=== PATIENT | female | born 1985 | race Caucasian/White ===

== ENCOUNTER 2021-05-18 11:59 | Emergency (ER) | payer OTHER, SELFPAY ==
[2021-05-18 12:38] VITALS: BP 129/80; PULSE 90; RESP 16; TEMP 36.3; O2SAT 100
[2021-05-18 14:00] LABS: Add Urine Microscopic? YES; Appearance Urine Clear (Clear); Bacteria Urine Trace /hpf; Bilirubin Urine Negative (Negative); Blood Urine 1+ (Negative); Color Urine Colorless (Yellow); Glucose Urine UA Negative (Negative); Ketones Urine Negative (Negative); Leukocyte Esterase Ur Negative LEU/UL (Negative); Nitrate Urine Negative (Negative); Protein Urine Negative (Negative); RBC Urine 0-2 /hpf (0-2); Squamous Epithelial Cell Urine Occasional /hpf (Few); Urobilinogen Urine Negative mg/dL (<2.0); WBC Urine 0-3 /hpf
--- NOTE | 2021-05-18 14:05 | ED.BACK ---
HPI - Back Pain/Injury General Chief Complaint: Back Pain/Injury Stated Complaint: low back pain Time Seen by Provider: 05/18/21 14:04 Source: patient Mode of arrival: ambulatory Limitations: no limitations History of Present Illness HPI Narrative: Patient complaining of frequent urination, urgency and burning sensation, lower back pain. Start 2 weeks ago. Similar to her previous history of urinary tract infection. Patient denies any fever, chills, nausea, vomiting Related Data Allergies Allergy/AdvReac Type Severity Reaction Status Date / Time codeine Allergy Mild Other Unverified 06/27/19 09:20 Review of Systems Review of Systems: CONSTITUTIONAL: Denies fever, chills, or sweats. EYES: Denies visual changes, redness, or discharge. ENT: Denies rhinorrhea, congestion, sore throat, or otalgia. CARDIOVASCULAR: Denies chest pain, palpitations, or edema. RESPIRATORY: Denies cough or dyspnea. GASTROINTESTINAL: Denies abdominal pain, nausea, vomiting, or diarrhea. GENITOURINARY: Denies dysuria or hematuria. SKIN: Denies rash or itching. MUSCULOSKELETAL: Denies back pain, joint pain, or myalgia. NEUROLOGIC: Denies headache, numbness, or weakness. PSYCHIATRIC: Denies anxiety or depression. PMFSH Social History Social History Gender identity (if verbalized by the patient): Female Exam Narrative: General appearance: Well-developed, well-nourished Skin: Normal color Chest and respiratory: Airway patent, no respiratory distress, no accessory muscle use Heart: Regular rate/rhythm Abdomen: Soft, nontender, no organomegaly, quiet bowel sounds Vascular: Normal peripheral pulses, normal capillary refill. Neurologic: Alert and oriented ?3, Course Course Emergency Course: Table Vital Signs Vital signs: Vital Signs Temperature 36.3 C L 05/18/21 12:38 Pulse Rate 90 05/18/21 12:38 Respiratory Rate 16 05/18/21 12:38 Blood Pressure 129/80 05/18/21 12:38 Pulse Oximetry 100 05/18/21 12:38 Temperature 36.3 C L 05/18/21 12:38 Pulse Rate 90 05/18/21 12:38 Respiratory Rate 16 05/18/21 12:38 Blood Pressure 129/80 05/18/21 12:38 Pulse Oximetry 100 05/18/21 12:38 MDM - Back Pain/Injury MDM Narrative Medical decision making narrative: Urine analysis showed no finding indicate urinary tract. Patient reports regular menstrual cycle over the last 3 months, also denies any vaginal bleeding or discharge, also denying any fever, chills, nausea, vomiting, abdominal pain. Patient does not have an MAILING CLERK, patient is sexually active intermittently. The plan to refer patient to MAILING CLERK for pelvic examination. Lab Data Labs: Lab Results 05/18/21 Range/Units 13:47 Urine Color Pending Urine Appearance Pending Urine pH Pending Ur Specific [place] Pending Urine Protein Pending Urine Glucose (UA) Pending Urine Ketones Pending Ur Blood (Man) Pending Urine Nitrate Pending Urine Bilirubin Pending Urine Urobilinogen Pending Leukocyte Esterase Rfl Pending Critical Care Time Critical Care Time Critical Care Time: No Discharge Plan Discharge Clinical Impression: Dysuria, Irregular menstrual cycle Patient Disposition: Home, Self-Care Condition: Stable Instructions: Antibiotic Form, Dysuria (ED) Additional Instructions: Return if symptoms are worsening , call sahil for appointment, take Tylenol as as needed for aches and pain, continue home medications. Prescriptions: New phenazopyridine [Pyridium] 200 mg tablet 200 mg PO TID PRN (Reason: pain) Qty: 6 RF: 0 No Action amoxicillin 875 mg tablet 875 mg PO TID 1
[2021-05-18 14:06] LABS: Specific Grav Ur 1.002 (1.001-1.035)
== END 2021-05-18 14:58 | disposition home or self-care (01) ==
PROVIDERS: Emergency Medicine; Emergency Provider Emergency Medicine
DX: R30.0 Dysuria (principal); N92.6 Irregular menstruation, unspecified
CPT/HCPCS: 81001; 99283

== ENCOUNTER 2023-05-10 10:51 | Outpatient (CLI) | payer OTHER, SELFPAY ==
--- NOTE | ~2023-05-10 | US_ITS ---
EXAMINATION: US thyroid DATE: 05/10/2023 11:24 INDICATION: Goiter. TECHNIQUE: Multiple ultrasound images of the thyroid were obtained. COMPARISON: None. FINDINGS: The right thyroid lobe measures 4.2 x 1.6 x 1.7 cm. The left thyroid lobe measures 3.7 x 1.4 x 1.4 c m. There is normal echotexture and echogenicity throughout the thyroid gland. No discrete nodules id entified. Normal vascular flow is present. IMPRESSION: 1. Normal thyroid. Reviewed, dictated and finalized at location E. AGING CLERK IMPRESSION: 1. Normal thyroid.
== END 2023-05-10 10:52 | disposition home or self-care (01) ==
PROVIDERS: PCP Nurse Practitioner Family; Visit Provider Nurse Practitioner Family
DX: E04.9 Nontoxic goiter, unspecified (principal)
CPT/HCPCS: 76536

== ENCOUNTER 2023-06-13 11:16 | Emergency (ER) | payer OTHER, SELFPAY ==
[2023-06-13 11:27] VITALS: BP 114/77; PULSE 100; RESP 16; TEMP 36.8; O2SAT 100
--- NOTE | 2023-06-13 11:38 | ED.URI ---
HPI - URI/Sore Throat General Chief Complaint: Upper Respiratory Infection Stated Complaint: Sore Throat Time Seen by Provider: 06/13/23 11:45 Source: patient and RN notes reviewed Mode of arrival: ambulatory Limitations: no limitations History of Present Illness HPI Narrative: 38-year-old female presents with concern for 3 day history of sore throat, headache, ear pain. 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 MD elicited complaint: sore throat Related Data Home Medications Medication Instructions Recorded Confirmed losartan 50 mg tablet 50 mg PO DAILY 06/13/23 06/13/23 Allergies Allergy/AdvReac Type Severity Reaction Status Date / Time codeine Allergy Mild Other Verified 06/13/23 11:27 Review of Systems Review of Systems: CONSTITUTIONAL: Denies malaise, chills, sweats, or fever. EYES: Denies visual changes, redness, or discharge. ENT: Reports rhinorrhea, congestion, otalgia and sore throat. CARDIOVASCULAR: Denies chest pain, palpitations, or edema. RESPIRATORY: Denies cough. Denies dyspnea. GASTROINTESTINAL: Denies abdominal pain, nausea, vomiting, diarrhea SKIN: Denies rash or itching. MUSCULOSKELETAL: Reports myalgia. NEUROLOGIC: Reports headache. All systems reviewed & are unremarkable except as noted in HPI and below PMFSH Social History Social History Gender identity (if verbalized by the patient): Female Comments At time of signature, agree with nursing past medical, surgical, social and family history. There is no relevant family history pertinent to the presenting complaint Exam Narrative: GENERAL: Well-appearing, well-nourished, and in no acute distress. HEAD: Normocephalic EYES: PERRLA, conjunctivae clear ENT: Nares clear, turbinates edematous and erythematous, clear discharge. Mucous membranes moist. TM pearly thompson with dull light reflex bilaterally; no tragal tenderness. Oropharynx erythematous without lesions. Tonsils not enlarged and without exudate, no drooling, no hoarseness, no trismus, uvula midline. NECK: Supple. No lymphadenopathy CHEST: Clear to auscultation, breath sounds equal. No wheezing, rhonchi, rales, or stridor. No respiratory distress, speaks in full sentences. HEART: Regular rate and rhythm. No murmur heard. SKIN: Warm, dry, no rash. NEURO: Alert and oriented x3. PSYCH: Normal mood and affect Course Course Emergency Course: Patient is aware of diagnosis, understands and agrees to treatment plan. Anticipatory guidance given. Patient agrees to follow-up as directed and is aware of reasons to seek care at the emergency department. Portions of this record may have been created with voice recognition software Level of Care: Express Care Visit Vital Signs Vital signs: Vital Signs Temperature 98.3 F 06/13/23 11:27 Pulse Rate 100 06/13/23 11:27 Respiratory Rate 16 06/13/23 11:27 Blood Pressure 114/77 06/13/23 11:27 Pulse Oximetry 100 06/13/23 11:27 Oxygen Delivery Room Air 06/13/23 11:27 Temperature 98.3 F 06/13/23 11:27 Pulse Rate 100 06/13/23 11:27 Respiratory Rate 16 06/13/23 11:27 Blood Pressure 114/77 06/13/23 11:27 Pulse Oximetry 100 06/13/23 11:27 Oxygen Delivery Room Air 06/13/23 11:27 Reviewed. MDM - URI/Sore Throat MDM Narrative Medical decision making narrative: Differential diagnosis considered: Galan virus, strep pharyngitis, allergic rhinitis, upper respiratory tract infection, sinusitis, rhinosinusitis, nasopharyngitis. viral pharyngitis, otitis media, otitis externa, pneumonia, bronchitis, viral cough syndrome, viral syndrome, and influenza. Exam findings show no acute concerns or changes; patient is non-toxic appearing and is in no distress. Patient is appropriate for outpatient treatment and follow-up. Lab Data Attestation: I reviewed the patient's lab results. Labs: Strep Screen Positive Group A Strep
== END 2023-06-13 12:00 | disposition home or self-care (01) ==
PROVIDERS: Emergency Provider Nurse Practitioner; PCP Nurse Practitioner Family
DX: J02.0 Streptococcal pharyngitis (principal)
CPT/HCPCS: 87880; 99213; G0463

== ENCOUNTER 2023-12-21 13:51 | Outpatient (CLI) | payer OTHER, SELFPAY ==
--- NOTE | ~2023-12-21 | MM_ITS ---
EXAMINATION: MM screening phuc BI w baljinder HISTORY: Screening TECHNIQUE: Craniocaudal and mediolateral oblique 3-D tomosynthesis images were obtained and synthetic 2-D images were generated. CAD analysis was submitted and interpreted. COMPARISON: No prior mammogram is available for comparison at this institution. BREAST PARENCHYMAL COMPOSITION: Not dense: There are scattered areas of fibroglandular density. FINDINGS: There is a mass in the lateral aspect of the right breast posteriorly on CC view. There is no evidence for malignancy in the left breast. IMPRESSION: 1. Right breast mass laterally on CC view. 2. Additional mammographic views and possible breast ultrasound are recommended. BI-RADS Category 0: Incomplete: Needs additional imaging evaluation. Reviewed, dictated and finalized at location B. IMPRESSION: 1. Right breast mass laterally on CC view. 2. Additional mammographic views and possible breast ultrasound are recommended . BI-RADS Category 0: Incomplete: Needs additional imaging evaluation.
== END 2023-12-21 13:52 | disposition home or self-care (01) ==
PROVIDERS: PCP Nurse Practitioner Family; Visit Provider Nurse Practitioner Family
DX: Z12.31 Encounter for screening mammogram for malignant neoplasm of breast (principal); N63.10 Unspecified lump in the right breast, unspecified quadrant; R92.8 Other abnormal and inconclusive findings on diagnostic imaging of breast
CPT/HCPCS: 77063; 77067

== ENCOUNTER 2024-01-10 12:54 | Outpatient (CLI) | payer OTHER, MEDICAID, SELFPAY ==
--- NOTE | ~2024-01-10 | MMUS_ITS ---
EXAMINATION: US breast RT limited, MM diagnostic phuc RT w baljinder HISTORY: Follow-up right breast asymmetry TECHNIQUE: Additional 3-D tomosynthesis images of the right breast were performed and synthetic 2-D i mages were generated. CAD analysis was submitted and interpreted. High resolution Limited right breas t/axillary ultrasound was performed. COMPARISON: None BREAST PARENCHYMAL COMPOSITION: Not dense: There are scattered areas of fibroglandular density. FINDINGS: MAMMOGRAPHIC FINDINGS: There is a radiolucent mass in the lower outer quadrant of the right breast posteriorly, likely benig n lymph node. There are no suspicious calcifications or architectural distortion. ULTRASOUND: Limited right breast/axillary ultrasound: Normal heterogeneous echotexture without focal solid or cys tic mass. IMPRESSION: 1. Probable benign right breast mass in the lower outer quadrant of the right breast posteriorly, mos t likely benign lymph node. No sonographic correlate. 2. Recommend 6 month follow-up diagnostic right mammogram with possible additional ultrasound. BI-RADS category 3, probably benign findings. Reviewed, dictated and finalized at location B. IMPRESSION: 1. Probable benign right breast mass in the lower outer quadrant of the right b reast posteriorly, most likely benign lymph node. No sonographic correlate. 2. Recommend 6 month follow-up diagnostic right mammogram with possible additio nal ultrasound. BI-RADS category 3, probably benign findings.
== END 2024-01-10 12:55 | disposition home or self-care (01) ==
LOC: ANHIMG 12:56
PROVIDERS: PCP Nurse Practitioner Family; Visit Provider Nurse Practitioner Family
DX: N63.13 Unspecified lump in the right breast, lower outer quadrant (principal)
CPT/HCPCS: 76642; 77061; 77065; G0279

== ENCOUNTER 2024-04-18 08:26 | Emergency (ER) | payer OTHER, MEDICAID, SELFPAY ==
--- NOTE | ~2024-04-18 | XR_ITS ---
3 VIEWS THORACIC SPINE Ordering provider: Nilda Macario PA-C History: . back pain , NKI . Comparison: None. FINDINGS: VERTEBRAL BODIES: Normal height and alignment. No visible fracture or subluxation. DISK SPACES: Normal. SOFT TISSUES: Normal. IMPRESSION: No acute osseous abnormality of the thoracic spine. Reviewed, dictated and finalized at location A. W EYE ASSEMBLER
--- NOTE | ~2024-04-18 | XR_ITS ---
XR ribs RT 2V w CXR 2V Ordering provider: Nilda Macario PA-C History: . right sided rib pain, NKI . Comparison: None. FINDINGS: BONES: No acute rib fracture. MEDIASTINUM: The cardiac silhouette is not enlarged. LUNGS: No infiltrates, effusions or pneumothorax. OTHER: No free air under the diaphragm. IMPRESSION: 1. No right rib fracture (Note: subtle/nondisplaced rib fractures can be occult on plain films and i f there is continued clinical suspicion for rib fracture, recommend follow up CT chest). 2. No acute cardiopulmonary findings. Reviewed, dictated and finalized at location A. OVOLTAIC SUBCONTRACTOR IMPRESSION: 1. No right rib fracture (Note: subtle/nondisplaced rib fractures can be occul t on plain films and if there is continued clinical suspicion for rib fracture, recommend follow up CT chest). 2. No acute cardiopulmonary findings.
[2024-04-18 08:33] VITALS: BP 134/83; PULSE 71; RESP 15; TEMP 36.5; O2SAT 100
--- NOTE | 2024-04-18 09:20 | ED_ITS ---
HPI - Back Pain/Injury General Chief Complaint: Back Pain/Injury Stated Complaint: back pain Time Seen by Provider: 04/18/24 09:07 Source: patient Mode of arrival: ambulatory Limitations: no limitations History of Present Illness HPI Narrative: This is a 39 year old female that presents to the ER for mid back pain. On the right side. Reports radiation down her right arm. Pain is worse with movement and relieved with rest. No known injuries. She has not taken anything for pain today. This has been ongoing for several days. Denies numbness or weakness. Related Data Allergies Allergy/AdvReac Type Severity Reaction Status Date / Time codeine Allergy Intermediate Other Verified 04/18/24 08:27 Review of Systems Review of Systems: CONSTITUTIONAL: Denies fever SKIN: Denies rash MUSCULOSKELETAL: Reports back pain, and myalgia. NEUROLOGIC: Denies numbness, or weakness. All systems reviewed & are unremarkable except as noted in HPI and below PMFSH Past Medical History Medical History Breast mass, right Cervical muscle strain HTN (hypertension) Hyperlipidemia Irritable bowel syndrome with constipation Overweight Surgical History Surgical History H/O dilation and curettage History of cholecystectomy Family History Family History Mother Cancer Diabetes mellitus Hypertension Heart disease Thyroid disease Sibling Hypertension Thyroid disease Social History Social History (Updated 03/27/24 @ 09:03 by Kimi Shankar CMA) Smoking status: Never smoker Alcohol intake: never Substance use: never Substance use type: does not use Do You Feel Safe in your Home?: Yes Lack of Transportation: No Lack of Food: Never True Current Housing: I Have Housing Concerned About Future Housing: No Difficulty Paying Gas/Electric Bills: No Difficulty Paying for Meds: No Currently Unemployed: No Education: High School Diploma/GED Difficulty w/ Childcare or Family Care: No Living arrangements: with family Occupation/Education: occupation 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 HEAD: Normocephalic, atraumatic. EYES: EOMI. CHEST: Clear to auscultation. No respiratory distress. No wheezes rales or rhonchi HEART: Regular rate and rhythm. No murmur heard. Normal peripheral pulses. BACK: No midline spinal tenderness. Tender to palpation of right trapezius muscu lature EXTREMITIES: Normal range of motion. No edema. Strength equal in bilateral upper and lower extremities (5/5) SKIN: Warm, dry, no rash. NEURO: No focal deficits. Alert and oriented x3. PSYCH: Normal mood and affect Course Course Emergency Course: Patient updated on her workup and agrees with plan of care Vital Signs Vital signs: Vital Signs Temperature 97.7 F 04/18/24 08:33 Pulse Rate 71 04/18/24 08:33 Respiratory Rate 15 04/18/24 08:33 Blood Pressure 134/83 04/18/24 08:33 Pulse Oximetry 100 04/18/24 08:33 Oxygen Delivery Room Air 04/18/24 08:33 Temperature 97.7 F 04/18/24 08:33 Pulse Rate 71 04/18/24 08:33 Respiratory Rate 15 04/18/24 08:33 Blood Pressure 134/83 04/18/24 08:33 Pulse Oximetry 100 04/18/24 08:33 Oxygen Delivery Room Air 04/18/24 08:33 MDM - Back Pain/Injury MDM Narrative Medical decision making narrative: patient presents to emergency department for right-sided mid back pain. Ongoing over the last couple of days. No known injuries. She is neurologically intact. X-rays of the ribs and thoracic spine without acute findings. Patient was updated on her workup and agrees with plan of care. Instructed on further care of muscle strain. She is to follow up with primary provider. She was given warnings to return to the ER Differential Diagnosis Differential diagnosis: Likely other ( muscle strain, muscle spasm, radiculopathy) Lab Data Attestation: I reviewed the patient's lab results. Labs: Lab Results 04/18/24 Range/Units 09:38 POC Urine HCG, Qual Negative (Negative) Imaging Data Radiologist's impression: ITS Impressions Ribs w/Chest X-Ray 04/18/24 09:58 IMPRESSION: 1. No right rib fracture (Note: subtle/nondisplaced rib fractures can be occult on plain films and if there is continued clinical suspicion for rib fracture, recommend follow up CT chest). 2. No acute cardiopulmonary findings. Thoracic Spine X-Ray 04/18/24 10:00 IMPRESSION: No acute osseous abnormality of the thoracic spine. Critical Care Time Critical Care Time Critical Care Time: No Discharge Plan Discharge Clinical Impression: Muscle strain Patient Disposition: Home, Self-Care Condition: Stable Instructions: Muscle Strain (ED), Back Pain (ED) Additional Instructions: Return to the ER if you experience weakness, numbness, or any other symptoms that are concerning to you Rest, use ice/heat, take anti-inflammatories (Aleve, Ibuprofen, Naproxen, etc) or Tylenol as needed for pain as well as muscle relaxer (Flexeril) as needed for pain. Muscle relaxers can make you drowsy, do not drive if you take this Follow up with your primary care doctor Prescriptions: New cyclobenzaprine 10 mg tablet 10 mg PO TID PRN (Reason: muscle spasm) Qty: 14 0RF No Action losartan 50 mg tablet 50 mg PO DAILY Qty: 90 1RF metronidazole 500 mg tablet 500 mg PO Q12H Qty: 14 0RF rosuvastatin 5 mg tablet 5 mg PO DAILY Qty: 90 1RF Follow-up/Referrals: Milvia Dawson APRN [Primary Care Provider] - Stand Alone Forms: Work/School Release IP
[2024-04-18] MEDS: KETOROLAC 30 MG/ML VIAL (*BKC) IM (09:27)
[2024-04-18] MEDS: ACETAMINOPHEN 500 MG TABLET 1000 MG PO (09:27)
[2024-04-18 09:40] LABS: BEDSIDEPREGUCG Negative (Negative)
[2024-04-18 11:18] VITALS: BP 124/88; PULSE 60; RESP 16; TEMP 36.4; O2SAT 100
== END 2024-04-18 11:21 | disposition home or self-care (01) ==
PROVIDERS: Emergency Provider Physician Assistant; PCP Nurse Practitioner Family
DX: T14.8XXA Other injury of unspecified body region, initial encounter (principal); X58.XXXA Exposure to other specified factors, initial encounter; I10 Essential (primary) hypertension; E78.5 Hyperlipidemia, unspecified
CPT/HCPCS: 71046; 71100; 72072; 81025; 96372; 99284; A9270; J1885

== ENCOUNTER 2024-06-02 10:57 | Emergency (ER) | payer OTHER, MEDICAID, SELFPAY ==
--- NOTE | ~2024-06-02 | CT_ITS ---
CT brain wo con Ordering provider: Krysta Adams PA-C History: 39 years Female with . migraine x5d, blurry vision . Comparison: None. Technique: CT of the head without contrast. Radiation reduction technique utilized.The dose-length product was 681 mGy-cm. FINDINGS: BRAIN PARENCHYMA AND CSF SPACES: No midline shift, mass effect or hemorrhage. The brain parenchyma a nd CSF spaces are otherwise normal. VISUALIZED PARANASAL SINUSES: Well aerated. MASTOIDS: Well aerated. BONES: The bones appear intact. SOFT TISSUES: Visualized nasopharynx is normal. Superficial soft tissues are normal. IMPRESSION: No acute intracranial findings. Reviewed, dictated and finalized at location A. [facility]
[2024-06-02 11:14] VITALS: BP 133/58; PULSE 77; RESP 16; TEMP 36.3; O2SAT 100
--- NOTE | 2024-06-02 13:23 | ED.HA ---
HPI - Headache General Chief Complaint: Headache <Artie Neff PA-C - Last Filed: 06/02/24 13:28> Stated Complaint: Migraine, chills, hot flashes <Artie Neff PA-C - Last Filed: 06/02/24 13:28> Time Seen by Provider: 06/02/24 19:04 <Artie Neff PA-C - Last Filed: 06/02/24 13:28> Focused HPI: This is a 39-year-old female who presents to the ED for chief complaint of migraine headache for the past 4 5 days. Reports that this feels fairly standard for her migraines. She does not take any regular migraine medications. Reports a throbbing headache bilaterally across the temples. Denies photophobia, fevers, chills but does endorse nausea. Denies vomiting. Denies numbness, weakness or head injury. Additional complaints of easy bruising and is concerned that she may have iron deficiency that may be related to all this. GENERAL: Well-appearing, well-nourished, and in no acute distress. HEAD: Normocephalic, atraumatic. CHEST: Clear to auscultation. No respiratory distress. HEART: Regular rate and rhythm. NEURO: Alert and oriented x3. Patient screened in triage and initial orders placed. Additional care and disposition to be based upon diagnostic testing and treatment. <Artie Neff PA-C - Last Filed: 06/02/24 13:28> Source: patient <SIMONE Nolasco Last Filed: 06/02/24 13:28> Mode of arrival: ambulatory <SIMONE Nolasco Last Filed: 06/02/24 13:28> Limitations: no limitations <SIMONE Nolasco Last Filed: 06/02/24 13:28> History of Present Illness HPI Narrative: Agree with above HPI. Took ibuprofen this morning. States she had some hot and cold chills last night, but these have resolved today. Denies known fever. <Krysta Adams PA-C - Last Filed: 06/02/24 21:33> Related Data Allergies/Adverse Reactions: Allergies Allergy/AdvReac Type Severity Reaction Status Date / Time codeine Allergy Intermediate Other Verified 05/25/24 10:07 <Artie Neff PA-C - Last Filed: 06/02/24 13:28> Review of Systems Review of Systems: All systems reviewed & are unremarkable except as noted in HPI. <Krysta Adams PA-C - Last Filed: 06/02/24 21:33> All systems reviewed & are unremarkable except as noted in HPI and below <Krysta Adams PA-C - Last Filed: 06/02/24 21:33> FOR[facility], [facility] Past Medical History Medical History: Medical History Breast mass, right Irritable bowel syndrome with constipation Overweight Cervical muscle strain Hyperlipidemia HTN (hypertension) <Artie Neff PA-C - Last Filed: 06/02/24 13:28> Surgical History Surgical History: Surgical History H/O dilation and curettage History of cholecystectomy <Artie Neff PA-C - Last Filed: 06/02/24 13:28> Family History Family History: Family History Mother Cancer Diabetes mellitus Hypertension Heart disease Thyroid disease Sibling Hypertension Thyroid disease <Artie Neff PA-C - Last Filed: 06/02/24 13:28> Social History Social History: Social History Social History: 05/25/24 very confident with medical forms Smoking status: Never smoker Alcohol intake: never Substance use: never Substance use type: does not use Do You Feel Safe in your Home?: Yes Lack of Transportation: No Lack of Food: Never True Current Housing: I Have Housing Concerned About Future Housing: No Difficulty Paying Gas/Electric Bills: No Difficulty Paying for Meds: No Currently Unemployed: No Education: High School Diploma/GED Difficulty w/ Childcare or Family Care: No Living arrangements: with family Occupation/Education: occupation 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 HEAD: Normocephalic, atraumatic. EYES: PERRL/EOMI, conjunctivae clear bilaterally. No nystagmus. ENT: Dental decay NECK: Supple. No meningeal signs. RESPIRATORY: Airway patent, respirations nonlabored. Clear to auscultation bilaterally, no rales, rhonchi, wheezing. CARDIOVASCULAR: Regular rate and rhythm without murmurs, rubs, or gallops. Peripheral pulses 2+ and equal bilaterally. MUSCULOSKELETAL: Moves all extremities. No gross deformities. SKIN: Warm, dry, normal color. No rashes. NEURO: A&O X3. Speech clear. Follows commands. CN II-XII intact. Sensation grossly intact. Steady gait. No ataxic movements. Strength 5/5 in upper and lower extremities bilaterally. No pronator drift. Equal powder blender and pourer strength bilaterally. PSYCHIATRIC: Appropriate mood and affect. Normal interaction. <Krysta Adams PA-C - Last Filed: 06/02/24 21:33> Course Vital Signs Vital signs: Vital Signs Temperature 97.4 F L 06/02/24 11:14 Pulse Rate 77 06/02/24 11:14 Respiratory Rate 16 06/02/24 11:14 Blood Pressure 133/58 L 06/02/24 11:14 Pulse Oximetry 100 06/02/24 11:14 Temperature 97.2 F L 06/02/24 18:13 Pulse Rate 73 06/02/24 18:13 Respiratory Rate 16 06/02/24 18:13 Blood Pressure 130/78 06/02/24 18:13 Pulse Oximetry 100 06/02/24 18:13 <SIMONE Nolasco Last Filed: 06/02/24 13:28> Vital Signs Temperature 97.4 F L 06/02/24 11:14 Pulse Rate 77 06/02/24 11:14 Respiratory Rate 16 06/02/24 11:14 Blood Pressure 133/58 L 06/02/24 11:14 Pulse Oximetry 100 06/02/24 11:14 Temperature 97.2 F L 06/02/24 18:13 Pulse Rate 73 06/02/24 18:13 Respiratory Rate 16 06/02/24 18:13 Blood Pressure 130/78 06/02/24 18:13 Pulse Oximetry 100 06/02/24 18:13 <Krysta Adams PA-C - Last Filed: 06/02/24 21:33> MDM - Headache MDM Narrative Medical decision making narrative: Patient's headache was not sudden in onset or maximal in severity. There are no focal neurological deficits on exam. Subarachnoid hemorrhage is felt to be unlikely at this time. CT brain was obtained and negative. There is no history of fever and neck is supple on evaluation without meningeal signs. Meningitis is felt to be unlikely. No traumatic history or signs of trauma on evaluation. No vision changes or ocular signs of acute glaucoma. Basic laboratory studies are unremarkable. No significant abnormalities. Viral swabs are negative. Patient feeling much better after migraine cocktail. Feels ready for discharge home. Patient's headache is felt to be benign cephalgia and reasonable for further outpatient management. Will refer to Neurology for frequent migraines. Also advised patient to follow with PCP for further evaluation. Recommended to continue Tylenol/ibuprofen as needed, stay well hydrated. Given reasons to return. She agrees with plan. Discharged in stable condition. <Krysta Adams PA-C - Last Filed: 06/02/24 21:33> Medical Records Attestation: I reviewed the patient's medical records. <Krysta Adams PA-C - Last Filed: 06/02/24 21:33> Lab Data Attestation: I reviewed the patient's lab results. <Krysta Adams PA-C - Last Filed: 06/02/24 21:33> Result diagrams: 06/02/24 18:12 06/02/24 18:12 <SIMONE Nolasco Last Filed: 06/02/24 13:28> Labs: Lab Results 06/02/24 06/02/24 Range/Units 18:12 19:08 WBC 7.0 (4.5-10.0) K/mm3 RBC 4.53 (4.2-5.4) M/mm3 Hgb 15.1 H (12.0-15.0) g/dL Hct 43.0 (37.0-47.0) % MCV 94.9 (80-100) fl MCH 33.3 (26-34) pg MCHC 35.1 (32-36) g/dl RDW 12.3 (11.5-14.5) % Plt Count 259 (150-375) k/mm3 MPV 9.5 (7.4-10.4) fl Immature Gran % (Auto) 0.1 (0-0.5) % Neut % (Auto) 70.4 (45.5-73.1) % Lymph % (Auto) 18.9 (18.3-44.2) % Dawes % (Auto) 9.2 H (2.6-8.5) % Eos % (Auto) 0.7 (0-4.4) % Baso % (Auto) 0.7 (0.2-1.2) % Lymph # (Auto) 1.32 (0.9-3.2) K/mm3 Dawes # (Auto) 0.6 (0.1-0.6) K/mm3 Eos # (Auto) 0.1 (0-0.3) K/mm3 Baso # (Auto) 0.1 (0.0-0.1) K/mm3 Abs Immat Gran (auto) 0.01 (0.00-0.031) K/mm3 Absolute Neuts (auto) 4.9 (1.3-6.7) K/mm3 Absolute Nucleated RBC 0.000 (0.0-0.012) K/mm3 Nucleated RBC % 0.0 (0.0-0.2) % Sodium 137 (137-145) mmol/L Potassium 3.9 (3.4-5.0) mmol/L Chloride 104 (98-107) mmol/L Carbon Dioxide 31 H (22-30) mmol/L Anion Gap 2 L (4-12) mmol/L BUN 6 L (7-17) mg/dL Creatinine 0.70 (0.7-1.0) mg/dL Estim Creat Clear Calc 76 ml/min Estimated GFR > 60 (59 - ) Glucose 107 (65-110) mg/dL Calcium 9.2 (8.4-10.2) mg/dL Total Bilirubin 0.8 (0.2-1.3) mg/dL AST 28 (14-36) U/L ALT 23 (6-35) U/L Alkaline Phosphatase 69 (38-126) U/L Total Protein 8.0 (6.3-8.2) g/dL Albumin 4.6 (3.5-5.1) g/dL Influenza A (RT-PCR) Negative (Negative) Influenza B (RT-PCR) Negative (Negative) RSV (RT-PCR) Negative (Negative) SARS-CoV-2 RNA (RT-PCR) Negative (Negative) <Artie Neff PA-C - Last Filed: 06/02/24 13:28> Lab Results 06/02/24 06/02/24 Range/Units 18:12 19:08 WBC 7.0 (4.5-10.0) K/mm3 RBC 4.53 (4.2-5.4) M/mm3 Hgb 15.1 H (12.0-15.0) g/dL Hct 43.0 (37.0-47.0) % MCV 94.9 (80-100) fl MCH 33.3 (26-34) pg MCHC 35.1 (32-36) g/dl RDW 12.3 (11.5-14.5) % Plt Count 259 (150-375) k/mm3 MPV 9.5 (7.4-10.4) fl Immature Gran % (Auto) 0.1 (0-0.5) % Neut % (Auto) 70.4 (45.5-73.1) % Lymph % (Auto) 18.9 (18.3-44.2) % Dawes % (Auto) 9.2 H (2.6-8.5) % Eos % (Auto) 0.7 (0-4.4) % Baso % (Auto) 0.7 (0.2-1.2) % Lymph # (Auto) 1.32 (0.9-3.2) K/mm3 Dawes # (Auto) 0.6 (0.1-0.6) K/mm3 Eos # (Auto) 0.1 (0-0.3) K/mm3 Baso # (Auto) 0.1 (0.0-0.1) K/mm3 Abs Immat Gran (auto) 0.01 (0.00-0.031) K/mm3 Absolute Neuts (auto) 4.9 (1.3-6.7) K/mm3 Absolute Nucleated RBC 0.000 (0.0-0.012) K/mm3 Nucleated RBC % 0.0 (0.0-0.2) % Sodium 137 (137-145) mmol/L Potassium 3.9 (3.4-5.0) mmol/L Chloride 104 (98-107) mmol/L Carbon Dioxide 31 H (22-30) mmol/L Anion Gap 2 L (4-12) mmol/L BUN 6 L (7-17) mg/dL Creatinine 0.70 (0.7-1.0) mg/dL Estim Creat Clear Calc 76 ml/min Estimated GFR > 60 (59 - ) Glucose 107 (65-110) mg/dL Calcium 9.2 (8.4-10.2) mg/dL Total Bilirubin 0.8 (0.2-1.3) mg/dL AST 28 (14-36) U/L ALT 23 (6-35) U/L Alkaline Phosphatase 69 (38-126) U/L Total Protein 8.0 (6.3-8.2) g/dL Albumin 4.6 (3.5-5.1) g/dL Influenza A (RT-PCR) Negative (Negative) Influenza B (RT-PCR) Negative (Negative) RSV (RT-PCR) Negative (Negative) SARS-CoV-2 RNA (RT-PCR) Negative (Negative) <Krysta Adams PA-C - Last Filed: 06/02/24 21:33> Imaging Data Attestation: I personally reviewed and interpreted this imaging study as follows: <Krysta Adams PA-C - Last Filed: 06/02/24 21:33> Radiologist's impression: ITS Impressions Head CT 06/02/24 19:43 IMPRESSION: No acute intracranial findings. <Krysta Adams PA-C - Last Filed: 06/02/24 21:33> Discharge Plan Discharge Clinical Impression: Migraine Qualifiers: Migraine type: unspecified Status migrainosus presence: without status migrainosus Intractability: not intractable Qualified Code(s): G43.909 - Migraine, unspecified, not intractable, without status migrainosus <Artie Neff PA-C - Last Filed: 06/02/24 13:28> Patient Disposition: Home, Self-Care <Artie Neff PA-C - Last Filed: 06/02/24 13:28> Condition: Stable <SIMONE Nolasco Last Filed: 06/02/24 13:28> Instructions: Antibiotic Form, Migraine Headache (ED), Acute Headache (ED) <Artie Neff PA-C - Last Filed: 06/02/24 13:28> Additional Instructions: Continue Tylenol and ibuprofen as needed for pain. Utilize Zofran as needed for further nausea. Get plenty of rest. Stay well hydrated. Recommend low light/ low stimulus environment, limiting screen time. Follow-up with your primary care doctor and/or Neurology for further evaluation if needed. Return to the ED if you experience worsening or severe pain, severe dizziness, vision changes, unable to keep down food or drink, or any other symptoms of concern. <Artie Neff PA-C - Last Filed: 06/02/24 13:28> Patient Language: Syriac <Artie Neff PA-C - Last Filed: 06/02/24 13:28> Prescriptions: New ondansetron 4 mg tablet,disintegrating 4 mg PO Q8H PRN (Reason: nausea and vomiting) Qty: 15 0RF No Action losartan 50 mg tablet 50 mg PO DAILY Qty: 90 1RF cyclobenzaprine 10 mg tablet 10 mg PO TID PRN (Reason: muscle spasm) Qty: 14 0RF rosuvastatin 5 mg tablet 5 mg PO DAILY Qty: 90 1RF <Artie Neff PA-C - Last Filed: 06/02/24 13:28> Follow-up/Referrals: Komal Etienne MD [Physician] - (NEUROLOGY) PHYSICIAN NOT ON STAFF,NONSTAFF [Non-Staff] - <Artie Neff PA-C - Last Filed: 06/02/24 13:28> Time of Disposition: 21:32 <SIMONE Nolasco Last Filed: 06/02/24 13:28> 21:32 <Krysta Adams PA-C - Last Filed: 06/02/24 21:33>
[2024-06-02 18:13] VITALS: BP 130/78; PULSE 73; RESP 16; TEMP 36.2; O2SAT 100
[2024-06-02 18:24] LABS: Basophils Absolute Auto 0.1 K/mm3 (0.0-0.1); Basophils Percent Auto 0.7 % (0.2-1.2); Eosinophils Absolute Auto 0.1 K/mm3 (0-0.3); Eosinophils Percent Auto 0.7 % (0-4.4); Hemoglobin 15.1 g/dL (12.0-15.0); Immature Granulocyte Absolute 0.01 K/mm3 (0.00-0.031); Immature Granulocyte Percent A 0.1 % (0-0.5); Lymphocytes Absolute Auto 1.32 K/mm3 (0.9-3.2); Lymphocytes Percent Auto 18.9 % (18.3-44.2); Mean Corpuscular HGB Conc 35.1 g/dl (32-36); Mean Corpuscular Hemoglobin 33.3 pg (26-34); Mean Corpuscular Volume 94.9 fl (80-100); Mean Platelet Volume 9.5 fl (7.4-10.4); Monocytes Absolute Auto 0.6 K/mm3 (0.1-0.6); Monocytes Percent Auto 9.2 % (2.6-8.5); Neutrophils Absolute Auto 4.9 K/mm3 (1.3-6.7); Neutrophils Percent Auto 70.4 % (45.5-73.1); Platelet Count Result 259 k/mm3 (150-375); Red Blood Count 4.53 M/mm3 (4.2-5.4); Red Cell Distribution Width 12.3 % (11.5-14.5)
[2024-06-02 18:35] LABS: Alanine Aminotransferase 23 U/L (6-35); Albumin Level 4.6 g/dL (3.5-5.1); Alkaline Phosphatase 69 U/L (38-126); Anion Gap 2 mmol/L (4-12); Aspartate Amino Transferase 28 U/L (14-36); Bilirubin,Total 0.8 mg/dL (0.2-1.3); Blood Urea Nitrogen 6 mg/dL (7-17); Calcium 9.2 mg/dL (8.4-10.2); Carbon Dioxide 31 mmol/L (22-30); Chloride 104 mmol/L (98-107); Estimated CRCL calculation 76 ml/min; Estimated Glomerular Filt Rate > 60; Glucose 107 mg/dL (65-110); Potassium 3.9 mmol/L (3.4-5.0); Sodium 137 mmol/L (137-145)
[2024-06-02 19:47] LABS: Influenza A QL RT-PCR Negative (Negative); Influenza B QL RT-PCR Negative (Negative); RSV RNA, RT-PCR Negative (Negative); SARS-CoV-2 RNA PCR Negative (Negative)
[2024-06-02] MEDS: METOCLOPRAMIDE HCL INJ 10 MG/2 ML VIAL IV PUSH (20:08)
[2024-06-02] MEDS: diphenhydrAMINE HCl INJ 50 MG/ML VIAL 25 MG IV PUSH (20:08)
[2024-06-02] MEDS: KETOROLAC 30 MG/ML VIAL (*BKC) IV PUSH (20:08)
[2024-06-02] MEDS: ACETAMINOPHEN 500 MG TABLET 1000 MG PO (20:09)
[2024-06-02] MEDS: SODIUM CHLORIDE 0.9% IV 1,000 ML 999 ML IV CONT (20:09)
[2024-06-02] MEDS: dexAMETHasone SOD PHOS INJ 10 MG/ML 1 ML VIAL IV PUSH (20:16)
== END 2024-06-02 22:11 | disposition home or self-care (01) ==
PROVIDERS: Physician Assistant; Emergency Provider Physician Assistant; PCP Nurse Practitioner Family
DX: G43.909 Migraine, unspecified, not intractable, without status migrainosus (principal); E78.5 Hyperlipidemia, unspecified; I10 Essential (primary) hypertension; Z20.822 Contact with and (suspected) exposure to COVID-19
CPT/HCPCS: 36415; 70450; 80053; 85025; 87637; 96361; 96374; 96375; 99284; A9270; J1100; J1200; J1885; J2765; J7030